=== PATIENT | male | born 1975 | race Caucasian/White ===

== ENCOUNTER 2025-03-15 16:05 | Outpatient (REF) | payer BC, SELFPAY ==
[2025-03-15 19:37] LABS: Cholesterol 228 mg/dL (<200); HDL Cholesterol 38 mg/dL (>40)
[2025-03-15 20:12] LABS: Hemoglobin A1C 9.9 % (<5.7)
[2025-03-16 16:39] LABS: ALT 34 U/L (10-49); AST 20 U/L (<34); Albumin 4.6 g/dL (3.2-5.0); Alkaline Phosphatase 81 U/L (46-116); BUN 15 mg/dL (9-23); CO2 20.9 mmol/L (20.0-31.0); Calcium 9.8 mg/dL (8.3-10.6); Chloride 101 mmol/L (98-107); Glucose 291 mg/dL (74-106); Potassium 4.3 mmol/L (3.5-5.1); Sodium 137 mmol/L (136-145); Total Protein 7.7 g/dL (5.7-8.2)
[2025-03-16 19:46] LABS: PSA, Screening 0.5 ng/mL (<=3.5)
== END 2025-03-15 16:06 | disposition home or self-care (01) ==
LOC: NCHCN 16:05
PROVIDERS: PCP Nurse Practitioner Family
DX: Z12.5 Encounter for screening for malignant neoplasm of prostate (principal); Z13.6 Encounter for screening for cardiovascular disorders; Z13.1 Encounter for screening for diabetes mellitus; Z00.00 Encounter for general adult medical examination without abnormal findings
CPT/HCPCS: 80053; 80061; 82947; 83721; 84153; 84520; 82040; 82247; 82310; 82374; 82435; 82565; 83036; 84075; 84132; 84155; 84295; 84450; 84460